=== PATIENT | female | born 1960 | race Caucasian/White ===

== ENCOUNTER 2024-11-28 23:52 | Emergency (ER) | payer OTHER ==
--- NOTE | 2024-11-29 | ERPHSYRPT ---
- History of Present Illness Time Seen by Provider: 11/29/24 00:00 Historian: patient, family Exam Limitations: no limitations Physician History: This is an overweight 69-year-old white female patient who was brought to the emergency department private vehicle accompanied by family member. Patient stated that at 7 PM on the evening of 11/28/2024, patient began having some nausea vomiting symptoms and associated headache and bodyaches. She has no visual changes and she denies neck pain. She has no shortness of breath. On transport here by private vehicle, she was starting to feel mild substernal, central nonradiating chest pain. On arrival to the emergency department this chest pain has completely resolved. She has no shortness of breath. She is under a lot of stress at this time. Patient has no documented history of coronary disease. She does not smoke tobacco cigarettes. She has no history of hypertension, depression or anxiety. Timing/Duration: today, improved Location: substernal, central Chest Pain Radiation: no radiation Severity of Pain-Max: mild Severity of Pain-Current: none Associated Symptoms: nausea, vomiting, No abdominal pain, No shortness of breath, No cough Prior Chest Pain/Cardiac Workup: no prior chest pain, no prior cardiac workup Nitro Today/Relief: no nitro taken today Aspirin Treatment Today: 81 mg x 4, provided by ED Allergies/Adverse Reactions: cephalexin Adverse Reaction (Verified 11/29/24 00:19) Rash fluconazole Adverse Reaction (Verified 11/29/24 00:18) Rash Home Medications: Hctz/Triamterene 25/37.5 mg [Maxzide 25MG] 1 tab PO DAILY 11/29/24 [History] Hydroxyzine HCl 25 mg [Atarax 25 mg] 1 tab PO TID 11/29/24 [History] Venlafaxine HCl 37.5 mg [Effexor 37.5 mg] 1 tab PO HS 11/29/24 [History] Zolpidem Tartrate 10 mg [Ambien 10 MG] 1 tab PO HS 11/29/24 [History] Travel Risk - International Travel Have you traveled outside of the country in past 3 weeks: No - Emerging Infectious Disease Are you exhibiting symptoms associated with any current EIDs: Yes Symptoms: Headaches/Body Aches/, Vomitting - Review of Systems Constitutional: Weakness Eyes: No Symptoms Ears, Nose, & Throat: No Symptoms Respiratory: No Symptoms Cardiac: Chest Pain (Completely resolved prior to arrival to the emergency department) Abdominal/Gastrointestinal: Nausea, Vomiting, Appetite Changes Genitourinary Symptoms: No Symptoms Musculoskeletal: No Symptoms Skin: No Symptoms Neurological: No Symptoms Psychological: No Symptoms Endocrine: No Symptoms Hematologic/Lymphatic: No Symptoms Immunological/Allergic: No Symptoms All Other Systems: Reviewed and Negative - Past Medical History Pertinent Past Medical History: Yes - Nursing Vital Signs Nursing Vital Signs: Initial Vital Signs Temperature 99.2 F 11/28/24 23:54 Pulse Rate 82 11/28/24 23:54 Respiratory Rate 22 11/28/24 23:54 Blood Pressure 182/83 11/28/24 23:54 O2 Sat by Pulse Oximetry 97 11/28/24 23:54 Pain Scale Pain Intensity 8 - Physical Exam General Appearance: no apparent distress, alert, anxiety Eye Exam: PERRL/EOMI, eyes nml inspection Ears, Nose, Throat Exam: normal ENT inspection, moist mucous membranes Neck Exam: normal inspection, non-tender, supple, full range of motion Respiratory Exam: normal breath sounds, lungs clear, airway intact, No chest tenderness, No respiratory distress Cardiovascular Exam: regular rate/rhythm, normal heart sounds, normal peripheral pulses Gastrointestinal/Abdomen Exam: soft, normal bowel sounds, No tenderness Pelvic Exam: not done Rectal Exam: not done Back Exam: normal inspection, normal range of motion, No CVA tenderness, No vertebral tenderness Extremity Exam: normal inspection, normal range of motion, pelvis stable Neurologic Exam: alert, oriented x 3, cooperative, clin asst II-XII nml as tested, nml cerebellar function, nml station & gait, sensation nml Skin Exam: normal color, warm, dry Lymphatic Exam: No adenopathy SpO2 Interpretation: normal O2 Delivery: Room Air - Course Nursing assessment & vital signs reviewed: Yes EKG Interpreted by Me: RATE (70), Sinus Rhythm, NORMAL AXIS, NORMAL INTERVALS, NORMAL QRS, NORMAL ST-T, Other (No acute ischemia on today's twelve-lead EKG. QTc is 398. No comparison twelve-lead EKG available) Ordered Tests: Active Orders 24 hr Category Date Time Status CBC W DIFF Stat Lab 11/29/24 00:59 Completed CMP Stat Lab 11/29/24 00:59 Completed MONO SCREEN Stat Lab 11/29/24 00:59 Completed TROPONIN Q4H Lab 11/29/24 00:46 Completed TROPONIN Q4H Lab 11/29/24 05:00 Ordered TROPONIN Q4H Lab 11/29/24 09:00 Ordered UA W/RFX UR CULTURE Stat Lab 11/29/24 00:46 Completed Medication Summary Discontinued Medications Generic Name Dose Route Start Last Admin Trade Name Ambika PRN Reason Stop Dose Admin Morphine Sulfate 2 mg 11/29/24 01:21 11/29/24 01:33 Morphine Sulfate 2 Mg/Ml Inj IV 11/29/24 01:22 2 mg STAT ONE Administration Morphine Sulfate Confirm 11/29/24 01:27 Morphine Sulfate 2 Mg/Ml Inj Administered 11/29/24 01:28 Dose 2 mg .ROUTE .STK-MED ONE Ondansetron HCl 4 mg 11/29/24 01:21 11/29/24 01:33 Ondansetron Hcl 4 Mg/2 Ml Vial IV 11/29/24 01:22 4 mg STAT ONE Administration Ondansetron HCl Confirm 11/29/24 01:27 Ondansetron Hcl 4 Mg/2 Ml Vial Administered 11/29/24 01:28 Dose 4 mg .ROUTE .STK-MED ONE Lab/Rad Data: Laboratory Result Diagrams 11/29/24 00:59 11/29/24 00:59 Laboratory Results 11/29/24 11/29/24 11/29/24 Range/Units 00:59 00:59 00:59 WBC (3.98-10.04) x10^3/uL RBC (3.93-5.22) x10^6/uL Hgb (11.2-15.7) g/dL Hct (34.1-44.9) % MCV (79.4-94.8) fL MCH (25.6-32.2) pg MCHC (32.2-35.5) g/dL RDW (11.7-14.4) % Plt Count (182-369) x10^3/uL MPV (9.4-12.3) fL Gran % (34.0-71.1) % Immature Gran % (Auto) (0.001-0.429) % Nucleat RBC Rel Count (0.00-0.2) % Eos # (Auto) (0.04-0.36) x10^3/uL Immature Gran # (Auto) (0.001-0.031) x10^3u/L Absolute Lymphs (auto) (1.18-3.74) x10^3/uL Absolute Monos (auto) (0.24-0.86) x10^3/uL Absolute Nucleated RBC (0.00-0.012) x10^3u/L Lymphocytes % (19.3-51.7) % Monocytes % (4.7-12.5) % Eosinophils % (0.7-5.8) % Basophils % (0.1-1.2) % Absolute Granulocytes (1.56-6.13) x10^3/uL Basophils # (0.01-0.08) x10^3/uL Sodium 133 L (135-145) mmol/L Potassium 4.0 (3.5-5.1) mmol/L Chloride 96 L (98-107) mmol/L Carbon Dioxide 30 (22-30) mmol/L Anion Gap 11.0 (5-15) MEQ/L BUN 12 (7-17) mg/dL Creatinine 0.71 (0.52-1.04) mg/dL Estimated GFR 94.9 ML/MIN Glucose 114 H (74-106) mg/dL Calcium 9.9 (8.4-10.2) mg/dL Total Bilirubin 0.70 (0.2-1.3) mg/dL AST 29 (14-36) U/L ALT 19 (0-35) U/L Alkaline Phosphatase 71 (38-126) U/L Troponin I (0.000-0.033) ng/mL Serum Total Protein 7.8 (6.3-8.2) g/dL Albumin 4.6 (3.5-5.0) g/dL Urine Color (Yellow) Urine Appearance (Clear) Urine pH (4.6-8.0) Ur Specific [place] (1.005-1.030) Urine Protein (Negative) Urine Glucose (UA) (Negative) mg/dL Urine Ketones (Negative) Urine Blood (Negative) Urine Nitrite (Negative) Urine Bilirubin (Negative) Urine Urobilinogen (0.2) mg/dL Ur Leukocyte Esterase (Negative) U Hyaline Cast (Auto) (0-2) /LPF Urine Microscopic RBC (0-5) /HPF Urine Microscopic WBC (0-5) /HPF Ur Epithelial Cells (None Seen) /HPF Urine Bacteria (None Seen) /HPF Urine Culture Reflexed (NO) Monoscreen NEGATIVE (NEGATIVE) Influenza Type A Ag NEGATIVE (NEGATIVE) Influenza Type B Ag NEGATIVE (NEGATIVE) RSV (PCR) NEGATIVE (NEGATIVE) SARS-CoV-2 (PCR) POSITIVE A (NEGATIVE) 11/29/24 11/29/24 11/29/24 Range/Units 00:59 00:46 00:46 WBC 10.0 (3.98-10.04) x10^3/uL RBC 4.75 (3.93-5.22) x10^6/uL Hgb 14.6 (11.2-15.7) g/dL Hct 42.7 (34.1-44.9) % MCV 89.9 (79.4-94.8) fL MCH 30.7 (25.6-32.2) pg MCHC 34.2 (32.2-35.5) g/dL RDW 13.2 (11.7-14.4) % Plt Count 179 L (182-369) x10^3/uL MPV 11.0 (9.4-12.3) fL Gran % 85.8 H (34.0-71.1) % Immature Gran % (Auto) 0.3 (0.001-0.429) % Nucleat RBC Rel Count 0.0 (0.00-0.2) % Eos # (Auto) 0 L (0.04-0.36) x10^3/uL Immature Gran # (Auto) 0.03 (0.001-0.031) x10^3u/L Absolute Lymphs (auto) 0.71 L (1.18-3.74) x10^3/uL Absolute Monos (auto) 0.67 (0.24-0.86) x10^3/uL Absolute Nucleated RBC 0.00 (0.00-0.012) x10^3u/L Lymphocytes % 7.1 L (19.3-51.7) % Monocytes % 6.7 (4.7-12.5) % Eosinophils % 0.0 L (0.7-5.8) % Basophils % 0.1 (0.1-1.2) % Absolute Granulocytes 8.60 H (1.56-6.13) x10^3/uL Basophils # 0.01 (0.01-0.08) x10^3/uL Sodium (135-145) mmol/L Potassium (3.5-5.1) mmol/L Chloride (98-107) mmol/L Carbon Dioxide (22-30) mmol/L Anion Gap (5-15) MEQ/L BUN (7-17) mg/dL Creatinine (0.52-1.04) mg/dL Estimated GFR ML/MIN Glucose (74-106) mg/dL Calcium (8.4-10.2) mg/dL Total Bilirubin (0.2-1.3) mg/dL AST (14-36) U/L ALT (0-35) U/L Alkaline Phosphatase (38-126) U/L Troponin I < 0.012 (0.000-0.033) ng/mL Serum Total Protein (6.3-8.2) g/dL Albumin (3.5-5.0) g/dL Urine Color Yellow (Yellow) Urine Appearance Clear (Clear) Urine pH 8.0 (4.6-8.0) Ur Specific [place] 1.010 (1.005-1.030) Urine Protein Negative (Negative) Urine Glucose (UA) Negative (Negative) mg/dL Urine Ketones Negative (Negative) Urine Blood Negative (Negative) Urine Nitrite Negative (Negative) Urine Bilirubin Negative (Negative) Urine Urobilinogen 0.2 (0.2) mg/dL Ur Leukocyte Esterase Trace A (Negative) U Hyaline Cast (Auto) NONE SEEN (0-2) /LPF Urine Microscopic RBC 0-2 (0-5) /HPF Urine Microscopic WBC 0-2 (0-5) /HPF Ur Epithelial Cells None Seen (None Seen) /HPF Urine Bacteria None Seen (None Seen) /HPF Urine Culture Reflexed NO (NO) Monoscreen (NEGATIVE) Influenza Type A Ag (NEGATIVE) Influenza Type B Ag (NEGATIVE) RSV (PCR) (NEGATIVE) SARS-CoV-2 (PCR) (NEGATIVE) - Progress Progress: improved Air Movement: good Progress Note: 11/29/24 01:09 My medical decision making of the assignment of moderate complexity to this patient's medical issue today is based on review of the patient's past medical history, review of the patient's medication list, reviewed patient drug allergy list, history present illness and physical findings on examination. The workup today includes placement of an intravenous line, infusion of normal saline solution, infusion of Zofran intravenously, CBC, CMP, urinalysis, viral swabs and monotest. We also perform a troponin level and twelve-lead EKG. Differential diagnosis includes but is not limited to viral illness, urinary tract infection, dehydration, arrhythmia, electrolyte abnormalities, myocardial infarction. 11/29/24 01:59 Interpreted the patient's laboratory data results. Based on the laboratory data results, the patient has a COVID-19 infection. He does not have shortness of breath or chest pain. She still has headache and bodyaches. We will provide her with a Toradol injection. We will also provide her with a take-home Zofran 4 mg ODT as well as to take home [place] which she can take every 6-8 hours if needed. We will also remotely send a prescription for Zofran ODT to her pharmacy. She was told that as she is her primary caregiver for her , that she needs to be certain she is wearing a mask. I clarified how long she has had her symptoms. She states that it has been greater than a week with bodyaches and headache. The symptoms have been intermittent. This is the rationale for not prescribing Paxlovid 11/29/24 02:00 Blood Culture(s) Obtained: No Antibiotics given: No Counseled pt/family regarding: lab results, diagnosis, need for follow-up Medical Desision Making - Independent Historian Additional History obtained from: Family - Diagnostic Testing Diagnostic test were ordered, analyzed, and reviewed by me: Yes - Risk of complications The pt has a mod risk of morbidity or mortality based on: Need for prescription drug management - Departure Departure Disposition: Home Clinical Impression: COVID-19 virus infection, Headache, Generalized body aches Condition: Stable Critical Care Time: No Referrals: ARABELLA HARRIS [Primary Care Provider] - Follow up/PCP as directed Additional Instructions: Wear your protective mask at all times over the next 7 days. Drink plenty of clear liquids before advancing your diet. Take your medications as prescribed. Prescriptions: Ondansetron ODT 4 MG [Zofran Odt 4 mg] 4 mg PO Q6H PRN PRN #10 tablet PRN Reason: Vomiting
[2024-11-29 00:40] VITALS: TEMP 99.2
[2024-11-29 01:02] LABS: BASOPHIL % 0.1 % (0.1-1.2); Basophil (Absolute #) 0.01 x10^3/uL (0.01-0.08); Eosinophil (Absolute #) 0 x10^3/uL (0.04-0.36); Hematocrit 42.7 % (34.1-44.9); Hemoglobin 14.6 g/dL (11.2-15.7); IMMATURE GRAN # 0.03 x10^3u/L (0.001-0.031); IMMATURE GRAN % 0.3 % (0.001-0.429); Lymphocyte (Absolute #) 0.71 x10^3/uL (1.18-3.74); Lymphocytes % 7.1 % (19.3-51.7); Mean Cell Volume 89.9 fL (79.4-94.8); Mean Corpuscular Hemoglobin 30.7 pg (25.6-32.2); Mean Corpuscular Hgb Concent. 34.2 g/dL (32.2-35.5); Monocyte (Absolute #) 0.67 x10^3/uL (0.24-0.86); Monocytes % 6.7 % (4.7-12.5); Neutrophil % 85.8 % (34.0-71.1); Platelet Count 179 x10^3/uL (182-369); Red Blood Count 4.75 x10^6/uL (3.93-5.22); Red Cell Distribution Width 13.2 % (11.7-14.4)
[2024-11-29 01:09] LABS: Appearance Clear (Clear); Bacteria None Seen /HPF (None Seen); Bilirubin Negative (Negative); Blood Negative (Negative); Epithelial Cells None Seen /HPF (None Seen); Glucose, Urine Negative (Negative); Hyaline Casts NONE SEEN /LPF (0-2); Ketones Negative (Negative); Leukocyte Esterase Trace (Negative); Nitrite Negative (Negative); Protein,Urine Dip Negative (Negative); RBC 0-2 /HPF (0-5); Urobilinogen 0.2 mg/dL (0.2); WBC 0-2 /HPF (0-5)
[2024-11-29 01:13] LABS: ALBUMIN 4.6 g/dL (3.5-5.0); BILIRUBIN,TOTAL 0.7 mg/dL (0.2-1.3); Calcium 9.9 mg/dL (8.4-10.2); Creatinine 1 0.71 mg/dL (0.52-1.04); EST GLOMERULAR FILTRATION RATE 94.9 ML/MIN; Total Protein 7.8 g/dL (6.3-8.2)
[2024-11-29] MEDS ORDERED: Zofran 4 MG/2 ML VIAL ONE (01:27)
[2024-11-29] MEDS ORDERED: MORPHINE SULFATE 2 MG INJ ONE (01:27)
[2024-11-29] MEDS: MORPHINE SULFATE 2 MG INJ IV ONE (01:33)
[2024-11-29] MEDS: Zofran 4 MG/2 ML VIAL IV ONE (01:33)
[2024-11-29 01:39] LABS: INFLUENZA A NEGATIVE (NEGATIVE); INFLUENZA B NEGATIVE (NEGATIVE); RESPIRATORY SYNCTIAL VIRUS NEGATIVE (NEGATIVE)
[2024-11-29 01:50] LABS: SARS-CoV-2 Xpert Express POSITIVE (NEGATIVE)
[2024-11-29 02:02] VITALS: BP 116/64; PULSE 68; RESP 16; O2SAT 99
[2024-11-29] MEDS ORDERED: TORAdol 30 mg Injection ONE (02:04)
[2024-11-29] MEDS: TORAdol 30 mg Injection IV ONE (02:04)
[2024-11-29] MEDS ORDERED: ZOFRAN ODT 4 MG ONE (02:08)
[2024-11-29] MEDS ORDERED: NORCO 5/325 MG ONE (02:08)
[2024-11-29] MEDS: NORCO 5/325 MG PO ONE (02:09)
[2024-11-29] MEDS: ZOFRAN ODT 4 MG PO ONE (02:09)
== END 2024-11-29 02:24 | disposition home or self-care (01) ==
LOC: ED 23:52
DX: U07.1 COVID-19 (principal); R51.9 Headache, unspecified; M79.10 Myalgia, unspecified site; R11.2 Nausea with vomiting, unspecified; R07.9 Chest pain, unspecified; Z79.899 Other long term (current) drug therapy
CPT/HCPCS: 0241U; 36415; 80053; 81001; 84484; 85025; 86308; 93005; 96374; 96375; 99284; J1885; J2270; J2405; Q0162; A9270-GY